=== PATIENT | male | born 1965 | race Caucasian/White ===

== ENCOUNTER 2016-06-22 23:53 | Inpatient (IN) | payer MEDICARE ==
[~2016-06-22] VITALS: Ht 177.8 cm; Wt 61.2 kg
[~2016-06-22 23:53] MED LIST: ASPI81CH43 PO; ATOR40TA52 PO; CETI1CAP OR; DIV250ER PO; DIVA500T59 PO; ELVI1TAB4 PO; ELVITAB2 OR; FAM20T PO; FERR325T PO; FOLI1TAB6 PO; FURO40TA4 PO; KEP500T PO; MAGN400T23 PO; MELA5TAB8 PO; METO25TA5 PO; OLAN2.5T32 PO; ONDA4TAB5 PO; PHE100C PO; POTA80TA OR; SPIR100T21 PO; TAMS0.4C36 PO; THIA50CA PO; [UNRECOGNIZED DRUG - CODE] PO
[2016-06-23 01:16] LABS: Basophils # (auto) 0 uL; Basophils % (auto) 0.4 % (0.0-2.0); Eosinophils # (auto) 0 uL; Hemoglobin 16.4 g/dL (13.5-17.5); Lymphocytes # (auto) 0.8 uL; Lymphocytes % (auto) 9.3 % (10.0-50.0); Mean Corpuscular Hemoglobin 33.3 pg (28.0-32.0); Mean Corpuscular Hgb Conc. 33.6 g/dL (32.0-36.0); Mean Corpuscular Volume 99.3 fL (80.0-100.0); Mean Platelet Volume 7.3 fL (7.4-10.4); Monocytes # (auto) 0.8 uL; Monocytes % (auto) 8.8 % (0.0-12.0); Neutrophils # (auto) 7.4 uL; Neutrophils % (auto) 81.5 % (37.0-80.0); Platelet Count (auto) 229 10^3/uL (140-450); Red Cell Distribution Width 18.7 % (11.6-16.0)
[2016-06-23 01:25] LABS: Albumin 3.4 g/dL (3.4-5.0); Calcium 8.2 mg/dL (8.5-10.1); Magnesium 2.2 mg/dL (1.6-2.6); Potassium 3.7 mmol/L (3.5-5.1)
[2016-06-23 01:31] LABS: Bilirubin, Total 0.7 mg/dL (0.2-1.0); Total Protein 8.5 g/dL (6.4-8.2)
[2016-06-23 01:42] LABS: INR 1.08 (0.9-1.15); Partial Thromboplastin Time 26.1 sec (22.64-33.71); Prothrombin Time 11.7 sec (9.37-12.3)
[2016-06-23 01:48] LABS: Temperature: 21.6 C (20.0-25.0)
[2016-06-23] MEDS ORDERED: IOHEXOL 350 MG/ML 100ML IJ ONE (04:24)
[2016-06-23] MEDS ORDERED: LEVOFLOXACIN 500MG 100 ML IV ONE (06:00)
[2016-06-23] MEDS ORDERED: SULFAMETH-TRIMETH 80/16MG-ML 15 ML in D5W 5% 500 ML IV ONE (06:00)
[2016-06-23] MEDS ORDERED: LORazepam 2MG/ML-1ML VIAL ONE (06:01)
[2016-06-23] MEDS ORDERED: LORazepam 2MG/ML-1ML VIAL IV ONE (06:15)
[2016-06-23] MEDS ORDERED: SODIUM CHLORIDE 0.9% 1,000 ML IV ONE ×3 (06:15→14:30)
[2016-06-23] MEDS ORDERED: LEVETIRACETAM INJ 1,000 MG in SODIUM CHL 0.9% 100 ML IV ONE (06:15)
[2016-06-23] MEDS ORDERED: chlordiazePOXIDE HCL 5 MG CAP PO ONE (09:00)
[2016-06-23] MEDS ORDERED: VANCOMYCIN PER PHARMACY 0 MG IV SCH (09:15)
[2016-06-23] MEDS ORDERED: VANCOMYCIN 1GM/250ML D5W 250 ML IV ONE (09:15)
[2016-06-23] MEDS ORDERED: THIAMINE HCL 100 MG/ML 2ML VIAL IV ONE (09:30)
[2016-06-23] MEDS ORDERED: chlordiazePOXIDE HCL 25 MG CAP PO ONE (09:30)
[2016-06-23] MEDS ORDERED: ACETAMINOPHEN 500 MG TAB PO PRN (09:30)
[2016-06-23] MEDS ORDERED: HYDROmorphone HCL 2 MG/ML VL IV PRN (09:30)
[2016-06-23] MEDS ORDERED: NITROGLYCERIN 0.4 MG SL TAB SL PRN (09:30)
[2016-06-23] MEDS ORDERED: PROCHLORPERAZINE EDISYLATE 5 MG/ML 2ML VIAL IV PRN (09:30)
[2016-06-23] MEDS ORDERED: BACTRIM 5MG/KG Q8HR PER RX 0 ML IV SCH (09:30)
[2016-06-23] MEDS ORDERED: LACTULOSE 20Gm/30ML SOLN PO PRN (09:30)
[2016-06-23] MEDS ORDERED: HYDROcodone-ACET 5/325MG TAB PO PRN (09:30)
[2016-06-23] MEDS ORDERED: ALBUTEROL SULF 2.5 MG/0.5ML(0.5%) NEB SOLN NEB PRN (09:30)
[2016-06-23] MEDS: THIAMINE HCL 100 MG/ML 2ML VIAL IV SCH (09:56)
[2016-06-23] MEDS ORDERED: LEVETIRACETAM 500 MG TAB PO SCH ×2 (10:00)
[2016-06-23] MEDS ORDERED: PATIENTS OWN MEDICATION (Folic Acid 1 MG) PO SCH ×2 (10:00)
[2016-06-23] MEDS ORDERED: PATIENTS OWN MEDICATION (Rifaximin 550 MG) PO SCH (10:00)
[2016-06-23] MEDS ORDERED: PATIENTS OWN MEDICATION PO SCH ×2 (10:00)
[2016-06-23] MEDS ORDERED: OLANZAPINE 2.5 MG PO SCH (10:00)
[2016-06-23] MEDS ORDERED: DIVALPROEX SODIUM 250 MG PO SCH (10:00)
[2016-06-23] MEDS ORDERED: PATIENTS OWN MEDICATION (Divalproex Sodium 500 MG) PO SCH (10:00)
[2016-06-23] MEDS ORDERED: FERROUS SULFATE 325 MG TAB PO SCH (10:00)
[2016-06-23] MEDS: SODIUM CHLORIDE 0.9% 1,000 ML IV SCH ×3 (10:53→22:59)
[2016-06-23] MEDS: VANCOMYCIN 1GM/250ML D5W 250 ML IV SCH ×2 (11:00→18:38)
[2016-06-23] MEDS: TAMSULOSIN HYDROCHLORIDE 0.4 MG CAP PO SCH (11:00)
[2016-06-23] MEDS: MAGNESIUM OXIDE 400 MG TAB PO SCH (11:00)
[2016-06-23] MEDS: PANTOPRAZOLE SODIUM 40 MG/10 ML VIAL IV SCH (11:00)
[2016-06-23] MEDS: FOLIC ACID 1 MG TAB PO SCH (11:00)
[2016-06-23] MEDS: OLANZapine 5 MG TAB PO SCH ×2 (11:00→21:53)
[2016-06-23] MEDS: METOPROLOL TARTRATE 25 MG TAB PO SCH ×2 (11:03→21:53)
[2016-06-23] MEDS: AZITHROMYCIN 500MG/D5W 250ML 250 ML IV SCH (11:30)
[2016-06-23] MEDS ORDERED: chlordiazePOXIDE HCL 5 MG CAP PO SCH (12:00)
[2016-06-23] MEDS: RIFAXIMIN 550 MG TAB PO SCH ×2 (13:00→21:53)
[2016-06-23] MEDS: EMTRICITABINE PO SCH (13:00)
[2016-06-23] MEDS: TENOFOVIR DISOPROXIL FUMARATE PO SCH (13:00)
[2016-06-23] MEDS: COBICISTAT PO SCH (13:00)
[2016-06-23] MEDS: ELVITEGRAVIR PO SCH (13:00)
[2016-06-23 15:04] LABS: Hematocrit 40.2 % (41.0-53.0); Hemoglobin 13.5 g/dL (13.5-17.5)
[2016-06-23] MEDS: MEROPENEM 1GM IVPB 100 ML IV SCH ×2 (15:10→21:54)
[2016-06-23] MEDS: chlordiazePOXIDE HCL 5 MG CAP PO SCH ×2 (15:20→20:48)
[2016-06-23] MEDS: SULFAMETH-TRIMETH 80/16MG-ML 15 ML in D5W 5% 500 ML IV SCH (17:38)
[2016-06-23] MEDS: ALBUTEROL SULF 2.5 MG/0.5ML(0.5%) NEB SOLN NEB SCH ×3 (18:00→21:20)
[2016-06-23] MEDS ORDERED: FERROUS SULFATE 65 MG PO SCH (18:00)
[2016-06-23] MEDS ORDERED: PATIENTS OWN MEDICATION (Atorvastatin Calcium 1 TAB) PO SCH ×2 (18:00)
[2016-06-23] MEDS: FERROUS SULFATE 325 MG TAB PO SCH (18:39)
[2016-06-23 20:47] LABS: Hematocrit 40.6 % (41.0-53.0); Hemoglobin 13.6 g/dL (13.5-17.5)
[2016-06-23] MEDS: ATORVASTATIN 20 MG TAB PO SCH (21:53)
[2016-06-23] MEDS: PHENYTOIN SODIUM 100 MG CAP PO SCH (21:53)
[2016-06-23] MEDS: LEVETIRACETAM 500 MG TAB PO SCH (21:53)
[2016-06-24] VITALS (7 sets, daily range): BP systolic 90–114; BP diastolic 58–76
[2016-06-24] MEDS: SULFAMETH-TRIMETH 80/16MG-ML 15 ML in D5W 5% 500 ML IV SCH ×3 (00:14→16:00)
[2016-06-24] MEDS: SODIUM CHLORIDE 0.9% 1,000 ML IV SCH (00:44)
[2016-06-24] MEDS: ALBUTEROL SULF 2.5 MG/0.5ML(0.5%) NEB SOLN NEB SCH ×4 (00:46→18:44)
[2016-06-24] MEDS: VANCOMYCIN 1GM/250ML D5W 250 ML IV SCH ×2 (01:52→11:08)
[2016-06-24] MEDS: chlordiazePOXIDE HCL 5 MG CAP PO SCH ×4 (03:07→20:53)
[2016-06-24 05:43] LABS: Basophils # (auto) 0 uL; Basophils % (auto) 0.5 % (0.0-2.0); Eosinophils # (auto) 0 uL; Eosinophils % (auto) 0.2 % (0.0-7.0); Hematocrit 36.7 % (41.0-53.0); Hemoglobin 12.5 g/dL (13.5-17.5); Lymphocytes # (auto) 1.6 uL; Lymphocytes % (auto) 21.1 % (10.0-50.0); Mean Corpuscular Hemoglobin 33.7 pg (28.0-32.0); Mean Corpuscular Volume 99.3 fL (80.0-100.0); Mean Platelet Volume 7.3 fL (7.4-10.4); Monocytes # (auto) 0.8 uL; Monocytes % (auto) 10.3 % (0.0-12.0); Neutrophils # (auto) 5.2 uL; Neutrophils % (auto) 67.9 % (37.0-80.0); Platelet Count (auto) 114 10^3/uL (140-450); Red Cell Distribution Width 18.1 % (11.6-16.0); White Blood Cell 7.7 10^3/uL (4.4-10.8)
[2016-06-24 05:55] LABS: Albumin 2.5 g/dL (3.4-5.0); BUN/Creatinine Ratio 4.6; Bilirubin, Total 0.7 mg/dL (0.2-1.0); Calcium 7.7 mg/dL (8.5-10.1); Total Protein 6.4 g/dL (6.4-8.2)
[2016-06-24] MEDS: MEROPENEM 1GM IVPB 100 ML IV SCH ×3 (06:45→22:34)
[2016-06-24 06:48] LABS: Potassium 2.8 mmol/L (3.5-5.1)
[2016-06-24] MEDS ORDERED: POTASSIUM CHL 20 Meq TABLET PO ONE ×2 (08:45→10:45)
[2016-06-24] MEDS: FERROUS SULFATE 325 MG TAB PO SCH ×2 (08:49→18:02)
[2016-06-24] MEDS: EMTRICITABINE PO SCH (10:00)
[2016-06-24] MEDS: COBICISTAT PO SCH (10:00)
[2016-06-24] MEDS: TENOFOVIR DISOPROXIL FUMARATE PO SCH (10:00)
[2016-06-24] MEDS: ELVITEGRAVIR PO SCH (10:00)
[2016-06-24] MEDS: RIFAXIMIN 550 MG TAB PO SCH ×2 (10:00→22:34)
[2016-06-24] MEDS: THIAMINE HCL 100 MG/ML 2ML VIAL IV SCH (11:07)
[2016-06-24] MEDS: PANTOPRAZOLE SODIUM 40 MG/10 ML VIAL IV SCH (11:08)
[2016-06-24] MEDS: FOLIC ACID 1 MG TAB PO SCH (11:08)
[2016-06-24] MEDS: METOPROLOL TARTRATE 25 MG TAB PO SCH ×2 (11:09→12:39)
[2016-06-24] MEDS: TAMSULOSIN HYDROCHLORIDE 0.4 MG CAP PO SCH (11:10)
[2016-06-24] MEDS: OLANZapine 5 MG TAB PO SCH ×2 (11:10→22:31)
[2016-06-24] MEDS: MAGNESIUM OXIDE 400 MG TAB PO SCH (11:10)
[2016-06-24] MEDS: LEVETIRACETAM 500 MG TAB PO SCH ×2 (11:10→22:30)
[2016-06-24] MEDS: AZITHROMYCIN 500MG/D5W 250ML 250 ML IV SCH (11:13)
[2016-06-24] MEDS: SOD CHL 0.9%/ KCL 40MEQ 1,000 ML IV SCH ×2 (12:54→20:02)
[2016-06-24 16:53] LABS: Hematocrit 37.2 % (41.0-53.0); Hemoglobin 12.5 g/dL (13.5-17.5)
[2016-06-24 19:34] LABS: Urine Bilirubin Negative (Negative); Urine Blood TRACE /uL (Negative); Urine Color Yellow (Yellow); Urine Glucose Normal (Normal); Urine Ketone Negative (Negative); Urine Nitrite Negative (Negative); Urine RBC 11 /hpf (0 - 3); Urine Urobilinogen Normal (Negative)
[2016-06-24] MEDS: ATORVASTATIN 20 MG TAB PO SCH (22:30)
[2016-06-24] MEDS: PHENYTOIN SODIUM 100 MG CAP PO SCH (22:31)
[2016-06-25] MEDS: SULFAMETH-TRIMETH 80/16MG-ML 15 ML in D5W 5% 500 ML IV SCH ×2 (00:51→18:30)
[2016-06-25 01:34] LABS: Hematocrit 38.7 % (41.0-53.0); Hemoglobin 13.1 g/dL (13.5-17.5)
[2016-06-25 05:00] VITALS: BP 116/64
[2016-06-25] MEDS: chlordiazePOXIDE HCL 5 MG CAP PO SCH ×4 (05:12→20:54)
[2016-06-25] MEDS: ALBUTEROL SULF 2.5 MG/0.5ML(0.5%) NEB SOLN NEB SCH ×4 (06:00→18:26)
[2016-06-25] MEDS: MEROPENEM 1GM IVPB 100 ML IV SCH ×3 (06:23→22:37)
[2016-06-25] MEDS: SOD CHL 0.9%/ KCL 40MEQ 1,000 ML IV SCH ×2 (06:23→16:45)
[2016-06-25 07:29] LABS: Albumin 2.6 g/dL (3.4-5.0); BUN/Creatinine Ratio 3.8; Calcium 7.9 mg/dL (8.5-10.1)
[2016-06-25 07:31] LABS: Bilirubin, Total 0.7 mg/dL (0.2-1.0); Total Protein 6.6 g/dL (6.4-8.2)
[2016-06-25 07:43] VITALS: BP 128/88
[2016-06-25 07:46] LABS: Basophils # (auto) 0 uL; Basophils % (auto) 0.4 % (0.0-2.0); Eosinophils # (auto) 0 uL; Eosinophils % (auto) 0.4 % (0.0-7.0); Hematocrit 39.1 % (41.0-53.0); Hemoglobin 13.2 g/dL (13.5-17.5); Lymphocytes # (auto) 1.5 uL; Lymphocytes % (auto) 18.4 % (10.0-50.0); Mean Corpuscular Hgb Conc. 33.8 g/dL (32.0-36.0); Mean Corpuscular Volume 100.4 fL (80.0-100.0); Mean Platelet Volume 7.9 fL (7.4-10.4); Neutrophils # (auto) 5.5 uL; Neutrophils % (auto) 68.8 % (37.0-80.0); Platelet Count (auto) 119 10^3/uL (140-450); Red Cell Distribution Width 17.9 % (11.6-16.0); White Blood Cell 7.9 10^3/uL (4.4-10.8)
[2016-06-25] MEDS: LORazepam 2MG/ML-1ML VIAL IV PRN ×3 (08:39→22:58)
[2016-06-25] MEDS: PANTOPRAZOLE SODIUM 40 MG/10 ML VIAL IV SCH (09:03)
[2016-06-25] MEDS: THIAMINE HCL 100 MG/ML 2ML VIAL IV SCH (09:07)
[2016-06-25] MEDS: VANCOMYCIN 1GM/250ML D5W 250 ML IV SCH ×2 (09:09→20:53)
[2016-06-25] MEDS: FERROUS SULFATE 325 MG TAB PO SCH ×2 (09:09→18:00)
[2016-06-25] MEDS: TENOFOVIR DISOPROXIL FUMARATE PO SCH (09:14)
[2016-06-25] MEDS: EMTRICITABINE PO SCH (09:14)
[2016-06-25] MEDS: COBICISTAT PO SCH (09:14)
[2016-06-25] MEDS: ELVITEGRAVIR PO SCH (09:14)
[2016-06-25] MEDS: LEVETIRACETAM 500 MG TAB PO SCH ×2 (09:15→22:40)
[2016-06-25] MEDS: OLANZapine 5 MG TAB PO SCH ×2 (09:16→22:41)
[2016-06-25] MEDS: METOPROLOL TARTRATE 25 MG TAB PO SCH ×2 (09:28→22:42)
[2016-06-25] MEDS: TAMSULOSIN HYDROCHLORIDE 0.4 MG CAP PO SCH (09:32)
[2016-06-25] MEDS: MAGNESIUM OXIDE 400 MG TAB PO SCH (09:32)
[2016-06-25] MEDS: FOLIC ACID 1 MG TAB PO SCH (09:32)
[2016-06-25] MEDS: RIFAXIMIN 550 MG TAB PO SCH ×2 (10:00→22:46)
[2016-06-25 12:46] VITALS: BP 94/66
[2016-06-25] MEDS: AZITHROMYCIN 500MG/D5W 250ML 250 ML IV SCH (13:02)
[2016-06-25] MEDS: ENOXAPARIN SOD 40 MG/0.4 ML SYRINGE SC SCH (15:45)
[2016-06-25 16:23] VITALS: BP 87/61
[2016-06-25 22:00] VITALS: BP 100/71
[2016-06-25] MEDS: ATORVASTATIN 20 MG TAB PO SCH (22:39)
[2016-06-25] MEDS: PHENYTOIN SODIUM 100 MG CAP PO SCH (22:39)
[2016-06-26] MEDS: SULFAMETH-TRIMETH 80/16MG-ML 15 ML in D5W 5% 500 ML IV SCH ×3 (00:36→17:49)
[2016-06-26] MEDS: ALBUTEROL SULF 2.5 MG/0.5ML(0.5%) NEB SOLN NEB SCH ×4 (00:52→19:11)
[2016-06-26] MEDS: SOD CHL 0.9%/ KCL 40MEQ 1,000 ML IV SCH ×2 (02:45→13:56)
[2016-06-26] MEDS: chlordiazePOXIDE HCL 5 MG CAP PO SCH ×4 (03:29→21:06)
[2016-06-26 05:00] VITALS: BP 83/52
[2016-06-26] MEDS: MEROPENEM 1GM IVPB 100 ML IV SCH ×2 (05:50→13:56)
[2016-06-26 06:21] LABS: Basophils # (auto) 0 uL; Basophils % (auto) 0.4 % (0.0-2.0); Eosinophils # (auto) 0.2 uL; Eosinophils % (auto) 3.2 % (0.0-7.0); Hematocrit 37.3 % (41.0-53.0); Hemoglobin 12.7 g/dL (13.5-17.5); Lymphocytes # (auto) 1.3 uL; Lymphocytes % (auto) 20.1 % (10.0-50.0); Mean Platelet Volume 8.2 fL (7.4-10.4); Monocytes # (auto) 0.6 uL; Monocytes % (auto) 9.2 % (0.0-12.0); Neutrophils # (auto) 4.4 uL; Neutrophils % (auto) 67.1 % (37.0-80.0); Platelet Count (auto) 116 10^3/uL (140-450); Red Cell Distribution Width 18.5 % (11.6-16.0); White Blood Cell 6.6 10^3/uL (4.4-10.8)
[2016-06-26 06:46] LABS: Albumin 2.3 g/dL (3.4-5.0); BUN/Creatinine Ratio 7.7; Bilirubin, Total 0.4 mg/dL (0.2-1.0); Calcium 7.6 mg/dL (8.5-10.1); Potassium 3.8 mmol/L (3.5-5.1)
[2016-06-26 07:30] VITALS: BP 82/54
[2016-06-26 08:35] VITALS: BP 78/52
[2016-06-26] MEDS: METOPROLOL TARTRATE 25 MG TAB PO SCH ×2 (10:00→22:00)
[2016-06-26] MEDS: LEVETIRACETAM 500 MG TAB PO SCH ×2 (10:15→22:32)
[2016-06-26] MEDS: TAMSULOSIN HYDROCHLORIDE 0.4 MG CAP PO SCH (10:15)
[2016-06-26] MEDS: PANTOPRAZOLE SODIUM 40 MG/10 ML VIAL IV SCH (10:15)
[2016-06-26] MEDS: MAGNESIUM OXIDE 400 MG TAB PO SCH (10:15)
[2016-06-26] MEDS: OLANZapine 5 MG TAB PO SCH ×2 (10:16→22:33)
[2016-06-26] MEDS: FOLIC ACID 1 MG TAB PO SCH (10:16)
[2016-06-26] MEDS: FERROUS SULFATE 325 MG TAB PO SCH ×2 (10:17→17:50)
[2016-06-26] MEDS: THIAMINE HCL 100 MG/ML 2ML VIAL IV SCH (10:17)
[2016-06-26] MEDS: ENOXAPARIN SOD 40 MG/0.4 ML SYRINGE SC SCH (10:17)
[2016-06-26] MEDS: VANCOMYCIN 1GM/250ML D5W 250 ML IV SCH ×2 (10:36→21:06)
[2016-06-26] MEDS: RIFAXIMIN 550 MG TAB PO SCH ×2 (10:55→22:33)
[2016-06-26] MEDS: EMTRICITABINE PO SCH (10:56)
[2016-06-26] MEDS: ELVITEGRAVIR PO SCH (10:56)
[2016-06-26] MEDS: TENOFOVIR DISOPROXIL FUMARATE PO SCH (10:56)
[2016-06-26] MEDS: COBICISTAT PO SCH (10:56)
[2016-06-26 12:48] VITALS: BP 70/56
[2016-06-26] MEDS: AZITHROMYCIN 500MG/D5W 250ML 250 ML IV SCH (13:55)
[2016-06-26 16:43] VITALS: BP 71/52
[2016-06-26 22:00] VITALS: BP 92/66
[2016-06-26] MEDS: PHENYTOIN SODIUM 100 MG CAP PO SCH (22:32)
[2016-06-26] MEDS: ATORVASTATIN 20 MG TAB PO SCH (22:32)
[2016-06-27] VITALS (7 sets, daily range): BP systolic 71–91; BP diastolic 52–65
[2016-06-27] MEDS: ALBUTEROL SULF 2.5 MG/0.5ML(0.5%) NEB SOLN NEB SCH ×3 (00:13→19:04)
[2016-06-27] MEDS: SOD CHL 0.9%/ KCL 40MEQ 1,000 ML IV SCH ×4 (00:15→23:24)
[2016-06-27] MEDS: MEROPENEM 1GM IVPB 100 ML IV SCH ×4 (00:15→22:00)
[2016-06-27 03:06] LABS: Hematocrit 38.4 % (37.5-51.0); Hemoglobin 12.7 g/dL (12.6-17.7); Immature Granulocytes 0 % (.); MCH 33.8 pg (26.6-33.0); MCHC 33.1 g/dL (31.5-35.7); MCV 102 fL (79-97); Monocytes 11 % (.); Neutrophils 62 % (.); Neutrophils (Absolute) 4.6 x10E3/uL (1.4-7.0); Platelets 102 x10E3/uL (150-379); RBC 3.76 x10E6/uL (4.14-5.80); RDW 17.6 % (12.3-15.4); WBC 7.6 x10E3/uL (3.4-10.8)
[2016-06-27] MEDS: chlordiazePOXIDE HCL 5 MG CAP PO SCH ×4 (03:11→21:47)
[2016-06-27] MEDS: SULFAMETH-TRIMETH 80/16MG-ML 15 ML in D5W 5% 500 ML IV SCH ×4 (03:11→23:23)
[2016-06-27] MEDS: THIAMINE HCL 100 MG/ML 2ML VIAL IV SCH (09:14)
[2016-06-27] MEDS: PANTOPRAZOLE SODIUM 40 MG/10 ML VIAL IV SCH (09:14)
[2016-06-27] MEDS: VANCOMYCIN 1GM/250ML D5W 250 ML IV SCH ×2 (09:14→21:43)
[2016-06-27] MEDS: ENOXAPARIN SOD 40 MG/0.4 ML SYRINGE SC SCH (09:17)
[2016-06-27] MEDS: MAGNESIUM OXIDE 400 MG TAB PO SCH (09:19)
[2016-06-27] MEDS: LEVETIRACETAM 500 MG TAB PO SCH ×2 (09:20→21:47)
[2016-06-27] MEDS: FERROUS SULFATE 325 MG TAB PO SCH ×2 (09:20→17:15)
[2016-06-27] MEDS: OLANZapine 5 MG TAB PO SCH ×2 (09:20→21:34)
[2016-06-27] MEDS: TAMSULOSIN HYDROCHLORIDE 0.4 MG CAP PO SCH (09:20)
[2016-06-27] MEDS: FOLIC ACID 1 MG TAB PO SCH (09:20)
[2016-06-27] MEDS: METOPROLOL TARTRATE 25 MG TAB PO SCH ×2 (09:41→21:51)
[2016-06-27] MEDS: RIFAXIMIN 550 MG TAB PO SCH ×2 (10:00→21:43)
[2016-06-27] MEDS: EMTRICITABINE PO SCH (10:00)
[2016-06-27] MEDS: COBICISTAT PO SCH (10:00)
[2016-06-27] MEDS: TENOFOVIR DISOPROXIL FUMARATE PO SCH (10:00)
[2016-06-27] MEDS: ELVITEGRAVIR PO SCH (10:00)
[2016-06-27 11:07] LABS: Absolute CD 4 Helper 648 /uL (359-1519)
[2016-06-27] MEDS: AZITHROMYCIN 500MG/D5W 250ML 250 ML IV SCH (11:10)
[2016-06-27] MEDS: PHENYTOIN SODIUM 100 MG CAP PO SCH (21:47)
[2016-06-27] MEDS: ATORVASTATIN 20 MG TAB PO SCH (21:47)
[2016-06-28] MEDS: ALBUTEROL SULF 2.5 MG/0.5ML(0.5%) NEB SOLN NEB SCH ×4 (00:54→19:40)
[2016-06-28] MEDS: chlordiazePOXIDE HCL 5 MG CAP PO SCH ×4 (03:58→21:47)
[2016-06-28 05:12] VITALS: BP 75/53
[2016-06-28] MEDS ORDERED: SODIUM CHLORIDE 0.9 % NEB SOLN 3ML NEB ONE ×2 (05:36→11:29)
[2016-06-28] MEDS ORDERED: ALBUTEROL SULF 2.5 MG/0.5ML(0.5%) NEB SOLN ONE (05:36)
[2016-06-28] MEDS: MEROPENEM 1GM IVPB 100 ML IV SCH ×3 (05:46→23:12)
[2016-06-28] MEDS: SULFAMETH-TRIMETH 80/16MG-ML 15 ML in D5W 5% 500 ML IV SCH ×2 (08:00→16:13)
[2016-06-28] MEDS: FERROUS SULFATE 325 MG TAB PO SCH ×2 (08:00→18:00)
[2016-06-28 09:00] VITALS: BP 74/47
[2016-06-28] MEDS: VANCOMYCIN 1GM/250ML D5W 250 ML IV SCH ×2 (09:00→21:47)
[2016-06-28] MEDS: COBICISTAT PO SCH (10:00)
[2016-06-28] MEDS: ELVITEGRAVIR PO SCH (10:00)
[2016-06-28] MEDS: EMTRICITABINE PO SCH (10:00)
[2016-06-28] MEDS: RIFAXIMIN 550 MG TAB PO SCH ×2 (10:00→21:48)
[2016-06-28] MEDS: TENOFOVIR DISOPROXIL FUMARATE PO SCH (10:00)
[2016-06-28] MEDS: PANTOPRAZOLE SODIUM 40 MG/10 ML VIAL IV SCH (10:48)
[2016-06-28] MEDS: THIAMINE HCL 100 MG/ML 2ML VIAL IV SCH (10:49)
[2016-06-28] MEDS: FOLIC ACID 1 MG TAB PO SCH (10:50)
[2016-06-28] MEDS: MAGNESIUM OXIDE 400 MG TAB PO SCH (10:51)
[2016-06-28] MEDS: TAMSULOSIN HYDROCHLORIDE 0.4 MG CAP PO SCH (10:51)
[2016-06-28] MEDS: OLANZapine 5 MG TAB PO SCH ×2 (10:51→21:49)
[2016-06-28] MEDS: METOPROLOL TARTRATE 25 MG TAB PO SCH ×2 (10:52→22:00)
[2016-06-28] MEDS: LEVETIRACETAM 500 MG TAB PO SCH ×2 (10:52→21:48)
[2016-06-28] MEDS: ENOXAPARIN SOD 40 MG/0.4 ML SYRINGE SC SCH (10:52)
[2016-06-28] MEDS: AZITHROMYCIN 500MG/D5W 250ML 250 ML IV SCH (12:00)
[2016-06-28 13:00] VITALS: BP 88/64
[2016-06-28] MEDS: SOD CHL 0.9%/ KCL 40MEQ 1,000 ML IV SCH (14:45)
[2016-06-28 17:17] VITALS: BP 89/56
[2016-06-28] MEDS: BOOST PLUS 8 ounce PO SCH (18:00)
[2016-06-28] MEDS: PRO-STAT 64 30ML PO SCH (18:00)
[2016-06-28 20:42] VITALS: BP 93/60
[2016-06-28] MEDS: ATORVASTATIN 20 MG TAB PO SCH (21:48)
[2016-06-28] MEDS: PHENYTOIN SODIUM 100 MG CAP PO SCH (21:48)
[2016-06-29] MEDS: SULFAMETH-TRIMETH 80/16MG-ML 15 ML in D5W 5% 500 ML IV SCH ×2 (00:45→08:20)
[2016-06-29] MEDS: SOD CHL 0.9%/ KCL 40MEQ 1,000 ML IV SCH (01:12)
[2016-06-29] MEDS: chlordiazePOXIDE HCL 5 MG CAP PO SCH ×4 (03:12→21:53)
[2016-06-29] MEDS: MEROPENEM 1GM IVPB 100 ML IV SCH (05:37)
[2016-06-29 06:12] VITALS: BP 89/67
[2016-06-29] MEDS: ALBUTEROL SULF 2.5 MG/0.5ML(0.5%) NEB SOLN NEB SCH ×3 (07:15→19:07)
[2016-06-29] MEDS: BOOST PLUS 8 ounce PO SCH ×2 (08:00→16:09)
[2016-06-29] MEDS: PRO-STAT 64 30ML PO SCH ×2 (08:00→19:30)
[2016-06-29] MEDS: FERROUS SULFATE 325 MG TAB PO SCH ×2 (08:00→17:33)
[2016-06-29 09:00] VITALS: BP 97/64
[2016-06-29] MEDS: EMTRICITABINE PO SCH (10:00)
[2016-06-29] MEDS: METOPROLOL TARTRATE 25 MG TAB PO SCH ×2 (10:00→21:54)
[2016-06-29] MEDS: COBICISTAT PO SCH (10:00)
[2016-06-29] MEDS: TENOFOVIR DISOPROXIL FUMARATE PO SCH (10:00)
[2016-06-29] MEDS: RIFAXIMIN 550 MG TAB PO SCH ×2 (10:00→21:53)
[2016-06-29] MEDS: ELVITEGRAVIR PO SCH (10:00)
[2016-06-29 13:00] VITALS: BP 94/64
[2016-06-29] MEDS: TAMSULOSIN HYDROCHLORIDE 0.4 MG CAP PO SCH (15:53)
[2016-06-29] MEDS: THIAMINE HCL 100 MG/ML 2ML VIAL IV SCH (15:53)
[2016-06-29] MEDS: MAGNESIUM OXIDE 400 MG TAB PO SCH (15:53)
[2016-06-29] MEDS: LEVETIRACETAM 500 MG TAB PO SCH ×2 (15:55→21:53)
[2016-06-29] MEDS: FOLIC ACID 1 MG TAB PO SCH (15:56)
[2016-06-29] MEDS: OLANZapine 5 MG TAB PO SCH ×2 (16:06→21:54)
[2016-06-29] MEDS: ENOXAPARIN SOD 40 MG/0.4 ML SYRINGE SC SCH (16:07)
[2016-06-29 18:02] VITALS: BP 94/61
[2016-06-29] MEDS: ATORVASTATIN 20 MG TAB PO SCH (21:53)
[2016-06-29] MEDS: PHENYTOIN SODIUM 100 MG CAP PO SCH (21:54)
[2016-06-29 22:00] VITALS: BP 102/60
[2016-06-30] MEDS: chlordiazePOXIDE HCL 5 MG CAP PO SCH ×4 (03:00→21:14)
[2016-06-30 03:03] VITALS: BP 112/70
[2016-06-30 05:00] VITALS: BP 92/60
[2016-06-30] MEDS: ALBUTEROL SULF 2.5 MG/0.5ML(0.5%) NEB SOLN NEB SCH ×5 (07:20→23:23)
[2016-06-30] MEDS: BOOST PLUS 8 ounce PO SCH ×2 (08:00→18:00)
[2016-06-30] MEDS: PRO-STAT 64 30ML PO SCH ×2 (08:00→18:00)
[2016-06-30] MEDS: ENOXAPARIN SOD 40 MG/0.4 ML SYRINGE SC SCH (09:46)
[2016-06-30] MEDS: TAMSULOSIN HYDROCHLORIDE 0.4 MG CAP PO SCH (09:47)
[2016-06-30] MEDS: LEVETIRACETAM 500 MG TAB PO SCH ×2 (09:47→21:15)
[2016-06-30] MEDS: MAGNESIUM OXIDE 400 MG TAB PO SCH (09:47)
[2016-06-30] MEDS: THIAMINE HCL 100 MG/ML 2ML VIAL IV SCH (09:47)
[2016-06-30] MEDS: RIFAXIMIN 550 MG TAB PO SCH ×2 (09:47→21:15)
[2016-06-30] MEDS: OLANZapine 5 MG TAB PO SCH ×2 (09:47→21:15)
[2016-06-30] MEDS: FOLIC ACID 1 MG TAB PO SCH (09:47)
[2016-06-30] MEDS: METOPROLOL TARTRATE 25 MG TAB PO SCH ×2 (09:52→21:17)
[2016-06-30] MEDS: COBICISTAT PO SCH (09:57)
[2016-06-30] MEDS: ELVITEGRAVIR PO SCH (09:57)
[2016-06-30] MEDS: EMTRICITABINE PO SCH (09:57)
[2016-06-30] MEDS: TENOFOVIR DISOPROXIL FUMARATE PO SCH (09:57)
[2016-06-30] MEDS: FERROUS SULFATE 325 MG TAB PO SCH ×2 (10:03→17:54)
[2016-06-30 10:34] VITALS: BP 101/75
[2016-06-30] MEDS: LORazepam 2MG/ML-1ML VIAL IV PRN (11:52)
[2016-06-30 12:48] VITALS: BP 100/65
[2016-06-30] MEDS: PHENYTOIN SODIUM 100 MG CAP PO SCH (21:16)
[2016-06-30] MEDS: ATORVASTATIN 20 MG TAB PO SCH (21:16)
[2016-06-30 21:31] VITALS: BP 100/58
[2016-07-01] MEDS: chlordiazePOXIDE HCL 5 MG CAP PO SCH ×2 (03:06→09:37)
[2016-07-01 04:34] VITALS: BP 99/52
[2016-07-01] MEDS: ALBUTEROL SULF 2.5 MG/0.5ML(0.5%) NEB SOLN NEB SCH ×2 (06:43→11:30)
[2016-07-01] MEDS: BOOST PLUS 8 ounce PO SCH ×2 (08:00→18:00)
[2016-07-01] MEDS: PRO-STAT 64 30ML PO SCH ×2 (08:00→18:00)
[2016-07-01] MEDS: THIAMINE HCL 100 MG/ML 2ML VIAL IV SCH (09:36)
[2016-07-01] MEDS: ENOXAPARIN SOD 40 MG/0.4 ML SYRINGE SC SCH (09:36)
[2016-07-01] MEDS: OLANZapine 5 MG TAB PO SCH ×2 (09:37→21:53)
[2016-07-01] MEDS: FOLIC ACID 1 MG TAB PO SCH (09:38)
[2016-07-01] MEDS: FERROUS SULFATE 325 MG TAB PO SCH ×2 (09:38→18:04)
[2016-07-01] MEDS: LEVETIRACETAM 500 MG TAB PO SCH ×2 (09:38→21:53)
[2016-07-01] MEDS: MAGNESIUM OXIDE 400 MG TAB PO SCH (09:38)
[2016-07-01] MEDS: TAMSULOSIN HYDROCHLORIDE 0.4 MG CAP PO SCH (09:40)
[2016-07-01] MEDS: TENOFOVIR DISOPROXIL FUMARATE PO SCH (09:40)
[2016-07-01] MEDS: COBICISTAT PO SCH (09:40)
[2016-07-01] MEDS: ELVITEGRAVIR PO SCH (09:40)
[2016-07-01] MEDS: EMTRICITABINE PO SCH (09:40)
[2016-07-01] MEDS: RIFAXIMIN 550 MG TAB PO SCH ×2 (09:41→21:53)
[2016-07-01] MEDS: METOPROLOL TARTRATE 25 MG TAB PO SCH ×2 (10:00→21:54)
[2016-07-01 13:00] VITALS: BP 91/68
[2016-07-01] MEDS ORDERED: LORazepam 2MG/ML-1ML VIAL IV PRN ×3 (14:45→15:00)
[2016-07-01] MEDS ORDERED: HYDROmorphone HCL 2 MG/ML VL IV PRN (14:45)
[2016-07-01] MEDS ORDERED: HYDROcodone-ACET 5/325MG TAB PO PRN (14:45)
[2016-07-01] MEDS ORDERED: chlordiazePOXIDE HCL 5 MG CAP PO SCH (15:00)
[2016-07-01] MEDS ORDERED: chlordiazePOXIDE HCL 5 MG CAP PO PRN (15:00)
[2016-07-01 17:00] VITALS: BP 99/72
[2016-07-01 20:58] VITALS: BP 83/56
[2016-07-01] MEDS: ATORVASTATIN 20 MG TAB PO SCH (21:53)
[2016-07-01] MEDS: PHENYTOIN SODIUM 100 MG CAP PO SCH (21:53)
[2016-07-01 23:56] VITALS: BP 90/59
[2016-07-02 04:39] VITALS: BP 93/64
[2016-07-02 07:00] LABS: Basophils # (auto) 0 uL; Basophils % (auto) 0.9 % (0.0-2.0); Eosinophils # (auto) 0.3 uL; Hematocrit 35.9 % (41.0-53.0); Hemoglobin 12.1 g/dL (13.5-17.5); Lymphocytes # (auto) 1.6 uL; Lymphocytes % (auto) 42.6 % (10.0-50.0); Mean Corpuscular Hgb Conc. 33.6 g/dL (32.0-36.0); Mean Platelet Volume 7.6 fL (7.4-10.4); Monocytes # (auto) 0.5 uL; Monocytes % (auto) 12.8 % (0.0-12.0); Neutrophils # (auto) 1.4 uL; Neutrophils % (auto) 35.7 % (37.0-80.0); Platelet Count (auto) 249 10^3/uL (140-450); Red Cell Distribution Width 18.3 % (11.6-16.0); White Blood Cell 3.8 10^3/uL (4.4-10.8)
[2016-07-02 07:28] LABS: BUN/Creatinine Ratio 35.1; Calcium 8.7 mg/dL (8.5-10.1); Magnesium 2.2 mg/dL (1.6-2.6); Potassium 4.3 mmol/L (3.5-5.1)
[2016-07-02] MEDS: MAGNESIUM OXIDE 400 MG TAB PO SCH (08:44)
[2016-07-02] MEDS: TAMSULOSIN HYDROCHLORIDE 0.4 MG CAP PO SCH (08:45)
[2016-07-02] MEDS: FOLIC ACID 1 MG TAB PO SCH (08:45)
[2016-07-02] MEDS: THIAMINE HCL 100 MG TAB PO SCH (08:45)
[2016-07-02] MEDS: FERROUS SULFATE 325 MG TAB PO SCH ×2 (08:46→18:28)
[2016-07-02] MEDS: ENOXAPARIN SOD 40 MG/0.4 ML SYRINGE SC SCH (08:47)
[2016-07-02] MEDS: OLANZapine 5 MG TAB PO SCH ×2 (08:47→21:33)
[2016-07-02] MEDS: COBICISTAT PO SCH (08:48)
[2016-07-02] MEDS: TENOFOVIR DISOPROXIL FUMARATE PO SCH (08:48)
[2016-07-02] MEDS: ELVITEGRAVIR PO SCH (08:48)
[2016-07-02] MEDS: EMTRICITABINE PO SCH (08:48)
[2016-07-02] MEDS: RIFAXIMIN 550 MG TAB PO SCH ×2 (08:49→21:32)
[2016-07-02] MEDS: LEVETIRACETAM 500 MG TAB PO SCH ×2 (08:49→21:32)
[2016-07-02] MEDS: BOOST PLUS 8 ounce PO SCH ×2 (08:50→18:29)
[2016-07-02] MEDS: PRO-STAT 64 30ML PO SCH ×2 (08:50→18:29)
[2016-07-02 09:00] VITALS: BP 93/62
[2016-07-02] MEDS: METOPROLOL TARTRATE 25 MG TAB PO SCH ×2 (10:00→22:00)
[2016-07-02 12:35] VITALS: BP 98/71
[2016-07-02 16:52] VITALS: BP 100/72
[2016-07-02] MEDS: PHENYTOIN SODIUM 100 MG CAP PO SCH (21:32)
[2016-07-02] MEDS: ATORVASTATIN 20 MG TAB PO SCH (21:32)
[2016-07-02 21:48] VITALS: BP 93/62
[2016-07-03 05:10] VITALS: BP 98/59
[2016-07-03] MEDS: BOOST PLUS 8 ounce PO SCH (08:00)
[2016-07-03] MEDS: PRO-STAT 64 30ML PO SCH (08:00)
[2016-07-03] MEDS: ENOXAPARIN SOD 40 MG/0.4 ML SYRINGE SC SCH (09:01)
[2016-07-03] MEDS: FERROUS SULFATE 325 MG TAB PO SCH (09:01)
[2016-07-03] MEDS: MAGNESIUM OXIDE 400 MG TAB PO SCH (09:02)
[2016-07-03] MEDS: FOLIC ACID 1 MG TAB PO SCH (09:02)
[2016-07-03] MEDS: THIAMINE HCL 100 MG TAB PO SCH (09:02)
[2016-07-03] MEDS: OLANZapine 5 MG TAB PO SCH (09:03)
[2016-07-03] MEDS: TAMSULOSIN HYDROCHLORIDE 0.4 MG CAP PO SCH (09:04)
[2016-07-03] MEDS: LEVETIRACETAM 500 MG TAB PO SCH (09:04)
[2016-07-03] MEDS: METOPROLOL TARTRATE 25 MG TAB PO SCH (09:11)
[2016-07-03 09:16] VITALS: BP 92/71
[2016-07-03] MEDS: RIFAXIMIN 550 MG TAB PO SCH (09:31)
[2016-07-03] MEDS: COBICISTAT PO SCH (09:32)
[2016-07-03] MEDS: EMTRICITABINE PO SCH (09:32)
[2016-07-03] MEDS: ELVITEGRAVIR PO SCH (09:32)
[2016-07-03] MEDS: TENOFOVIR DISOPROXIL FUMARATE PO SCH (09:32)
[2016-07-03] MEDS ORDERED: KEP500T PO (10:31)
[2016-07-03 12:47] VITALS: BP 92/71
[2016-07-03 13:08] VITALS: BP 93/69
== END 2016-07-03 14:20 | disposition home health service (06) | DRG 974 ==
LOC: ER 23:53 → TELE 23:54 → EAST 06-23 23:32 → TELE-EAST 06-25 23:19 → TELE-CENTR 06-28 22:46 → CENTRAL 06-29 17:12
PROVIDERS: ADMIT Internal Medicine; ATTEND Internal Medicine Pulmonary Disease
DX: B20 Human immunodeficiency virus [HIV] disease (principal); A41.9 Sepsis, unspecified organism; J69.0 Pneumonitis due to inhalation of food and vomit; R53.2 Functional quadriplegia; E43 Unspecified severe protein-calorie malnutrition; M48.50XA Collapsed vertebra, not elsewhere classified, site unspecified, initial encounter for fracture; E87.1 Hypo-osmolality and hyponatremia; C79.51 Secondary malignant neoplasm of bone; Z68.1 Body mass index [BMI] 19.9 or less, adult; F10.231 Alcohol dependence with withdrawal delirium; I69.354 Hemiplegia and hemiparesis following cerebral infarction affecting left non-dominant side; K92.0 Hematemesis; E78.5 Hyperlipidemia, unspecified; F20.9 Schizophrenia, unspecified; I10 Essential (primary) hypertension; F17.200 Nicotine dependence, unspecified, uncomplicated; F17.210 Nicotine dependence, cigarettes, uncomplicated; Y90.9 Presence of alcohol in blood, level not specified; F31.9 Bipolar disorder, unspecified; G40.909 Epilepsy, unspecified, not intractable, without status epilepticus; G93.89 Other specified disorders of brain; I25.10 Atherosclerotic heart disease of native coronary artery without angina pectoris; I34.1 Nonrheumatic mitral (valve) prolapse; I67.2 Cerebral atherosclerosis; J43.9 Emphysema, unspecified; Z81.8 Family history of other mental and behavioral disorders; I25.2 Old myocardial infarction; Z82.49 Family history of ischemic heart disease and other diseases of the circulatory system; Z95.2 Presence of prosthetic heart valve; Z88.5 Allergy status to narcotic agent; Z88.0 Allergy status to penicillin
CPT/HCPCS: 36415; 36600; 70450; 71010; 71275; 74176; 80048; 80053; 80061; 80202; 80307; 80320; 81001; 82150; 82533; 82805; 83605; 83690; 83735; 83880; 84132; 84484; 85014; 85018; 85025; 85045; 85379; 85610; 85652; 85730; 86141; 86360; 86850; 86900; 86901; 87040; 87081; 87086; 87493; 93005; 94640; 94761; 96365; 96366; 96367; 96375; 97001; 97116; 97530; C9113; J1956; J2185; J3490

== ENCOUNTER 2016-08-09 15:34 | Observation (INO) | payer MEDICARE ==
[~2016-08-09] VITALS: Ht 177.8 cm; Wt 72.6 kg
[~2016-08-09 15:34] MED LIST changes: +DIPH25CA46 PO; +ELVITAB2 PO; -FERR325T PO; +METH10TA97 PO; -[UNRECOGNIZED DRUG - CODE] PO
[2016-08-09] MEDS ORDERED: SODIUM CHLORIDE 0.9% 1,000 ML IV ONE (17:37)
[2016-08-09 17:41] LABS: Anion Gap 9 (5-15); Blood Urea Nitrogen 11 mg/dL (7-18); Calcium 8.6 mg/dL (8.5-10.1); Carbon Dioxide 25 mmol/L (21-32); Chloride 102 mmol/L (98-107); GFR African American 227 mL/min; GFR Non-African American 188 mL/min; Glucose 82 mg/dL (74-106); Potassium 3.4 mmol/L (3.5-5.1); Sodium 136 mmol/L (136-145)
[2016-08-09 17:45] LABS: Basophils # (auto) 0.1 uL; Basophils % (auto) 1.2 % (0.0-2.0); CONDITION Y; Eosinophils # (auto) 0.5 uL; Eosinophils % (auto) 7.8 % (0.0-7.0); Hematocrit 43.6 % (41.0-53.0); Hemoglobin 15.1 g/dL (13.5-17.5); Lymphocytes % (auto) 30.7 % (10.0-50.0); Mean Corpuscular Hemoglobin 34.3 pg (28.0-32.0); Mean Corpuscular Hgb Conc. 34.6 g/dL (32.0-36.0); Mean Corpuscular Volume 99.3 fL (80.0-100.0); Mean Platelet Volume 8.9 fL (7.4-10.4); Monocytes # (auto) 0.7 uL; Monocytes % (auto) 10.2 % (0.0-12.0); Neutrophils # (auto) 3.3 uL; Neutrophils % (auto) 50.1 % (37.0-80.0); Platelet Count (auto) 363 10^3/uL (140-450); Red Cell Distribution Width 14.6 % (11.6-16.0); White Blood Cell 6.5 10^3/uL (4.4-10.8)
[2016-08-09] MEDS ORDERED: NALBUPHINE HCL 10 MG/1ml INJECTION IV ONE (17:45)
[2016-08-09] MEDS ORDERED: PROMETHAZINE HCL 25 MG/ML 1ML IV ONE (17:45)
[2016-08-09 17:46] LABS: Alkaline Phosphatase 253 U/L (45-117); Aspartate Aminotransferase 39 U/L (15-37); Bilirubin, Total 0.2 mg/dL (0.2-1.0); Total Protein 7.5 g/dL (6.4-8.2)
[2016-08-09] MEDS ORDERED: HYDROcodone-ACET 5/325MG TAB PO PRN (18:00)
[2016-08-09] MEDS ORDERED: PROMETHAZINE HCL 25 MG/ML 1ML IV PRN (18:00)
[2016-08-09] MEDS ORDERED: diphenhdrAMINE HCL 25 MG CAP PO PRN (18:00)
[2016-08-09] MEDS ORDERED: METHADONE HCL 10 MG TAB PO PRN (18:00)
[2016-08-09] MEDS ORDERED: ACETAMINOPHEN 500 MG TAB PO PRN (18:00)
[2016-08-09] MEDS ORDERED: NITROGLYCERIN 0.4 MG SL TAB SL PRN (18:00)
[2016-08-09] MEDS ORDERED: HYDROmorphone HCL 2 MG/ML VL IV PRN (18:00)
[2016-08-09 18:05] LABS: INR 1.13 (0.9-1.15); Partial Thromboplastin Time 29.4 sec (22.64-33.71); Prothrombin Time 12.3 sec (9.37-12.3)
[2016-08-09] MEDS ORDERED: MORPHINE SULFATE 4 MG/ML SYRG IV ONE (18:30)
[2016-08-09] MEDS ORDERED: SPIRONOLACTONE 25 MG TAB PO SCH (20:00)
[2016-08-09 20:02] VITALS: BP 120/85
[2016-08-09] MEDS ORDERED: LEVETIRACETAM 500 MG TAB PO SCH (22:00)
[2016-08-09] MEDS ORDERED: OLANZapine 5 MG TAB PO SCH (22:00)
[2016-08-09] MEDS ORDERED: FAMOTIDINE 20 MG TAB PO SCH (22:00)
[2016-08-09] MEDS ORDERED: METOPROLOL TARTRATE 25 MG TAB PO SCH (22:00)
[2016-08-09] MEDS ORDERED: ATORVASTATIN 20 MG TAB PO SCH (22:00)
[2016-08-09] MEDS ORDERED: PHENYTOIN SODIUM 100 MG CAP PO SCH (22:00)
[2016-08-10] MEDS ORDERED: ELVITEGRAVIR PO SCH (10:00)
[2016-08-10] MEDS ORDERED: TENOFOVIR DISOPROXIL FUMARATE PO SCH (10:00)
[2016-08-10] MEDS ORDERED: EMTRICITABINE PO SCH (10:00)
[2016-08-10] MEDS ORDERED: THIAMINE HCL 100 MG TAB PO SCH (10:00)
[2016-08-10] MEDS ORDERED: MAGNESIUM OXIDE 400 MG TAB PO SCH (10:00)
[2016-08-10] MEDS ORDERED: FOLIC ACID 1 MG TAB PO SCH (10:00)
[2016-08-10] MEDS ORDERED: NITROGLYCERIN 0.2MG/HR TOPICAL PATCH TD SCH (10:00)
[2016-08-10] MEDS ORDERED: COBICISTAT PO SCH (10:00)
== END 2016-08-09 20:30 | disposition home or self-care (01) | DRG 535 ==
LOC: ER 15:34 → EDBD 15:34 → OVERFLOW 17:40 → ER 20:30
PROVIDERS: ADMIT Emergency Medicine; ATTEND Emergency Medicine
DX: S72.001A Fracture of unspecified part of neck of right femur, initial encounter for closed fracture (principal); I13.0 Hypertensive heart and chronic kidney disease with heart failure and stage 1 through stage 4 chronic kidney disease, or unspecified chronic kidney disease; B20 Human immunodeficiency virus [HIV] disease; R64 Cachexia; F31.9 Bipolar disorder, unspecified; R74.8 Abnormal levels of other serum enzymes; F20.3 Undifferentiated schizophrenia; N40.0 Benign prostatic hyperplasia without lower urinary tract symptoms; K21.9 Gastro-esophageal reflux disease without esophagitis; I50.9 Heart failure, unspecified; G40.909 Epilepsy, unspecified, not intractable, without status epilepticus; I25.10 Atherosclerotic heart disease of native coronary artery without angina pectoris; I25.2 Old myocardial infarction; E78.5 Hyperlipidemia, unspecified; I34.1 Nonrheumatic mitral (valve) prolapse; E87.6 Hypokalemia; N18.9 Chronic kidney disease, unspecified; Z86.73 Personal history of transient ischemic attack (TIA), and cerebral infarction without residual deficits; Z95.2 Presence of prosthetic heart valve; W19.XXXA Unspecified fall, initial encounter; Y92.009 Unspecified place in unspecified non-institutional (private) residence as the place of occurrence of the external cause; Y93.89 Activity, other specified; Y99.8 Other external cause status
CPT/HCPCS: 36415; 71010; 73502; 80053; 80164; 80185; 83735; 84484; 85025; 85610; 85730; 86850; 86900; 86901; 93005; 96361; 96374; 96375; 99285; G0378; J2270; J2300; J2550

== ENCOUNTER 2016-10-01 16:32 | Emergency (ER) | payer MEDICARE ==
[~2016-10-01] VITALS: Ht 177.8 cm; Wt 72.6 kg
[2016-10-01 17:33] LABS: Basophils # (auto) 0 uL; Basophils % (auto) 0.3 % (0.0-2.0); CONDITION Y; Eosinophils # (auto) 0.2 uL; Hematocrit 41.2 % (41.0-53.0); Hemoglobin 13.9 g/dL (13.5-17.5); Lymphocytes # (auto) 1.2 uL; Lymphocytes % (auto) 15.5 % (10.0-50.0); Mean Corpuscular Hemoglobin 31.3 pg (28.0-32.0); Mean Corpuscular Hgb Conc. 33.7 g/dL (32.0-36.0); Mean Corpuscular Volume 93.1 fL (80.0-100.0); Mean Platelet Volume 7.9 fL (7.4-10.4); Monocytes # (auto) 0.7 uL; Monocytes % (auto) 8.7 % (0.0-12.0); Neutrophils # (auto) 5.8 uL; Neutrophils % (auto) 73.5 % (37.0-80.0); Platelet Count (auto) 279 10^3/uL (140-450); White Blood Cell 7.9 10^3/uL (4.4-10.8)
[2016-10-01] MEDS ORDERED: LEVETIRACETAM INJ 1,000 MG in SODIUM CHL 0.9% 100 ML IV ONE (18:00)
[2016-10-01 18:05] LABS: Albumin 3.1 g/dL (3.4-5.0); BUN/Creatinine Ratio 11.8; Bilirubin, Total 0.4 mg/dL (0.2-1.0); Calcium 8.5 mg/dL (8.5-10.1); Potassium 3.8 mmol/L (3.5-5.1); Total Protein 7.5 g/dL (6.4-8.2)
[2016-10-01] MEDS: LORazepam 2MG/ML-1ML VIAL IV ONE ×2 (18:26→19:50)
[2016-10-01] MEDS ORDERED: SODIUM CHLORIDE 0.9% 1,000 ML IV ONE ×2 (19:09)
[2016-10-01] MEDS ORDERED: LEVETIRACETAM 500 MG/5ML INJ IV ONE (19:38)
[2016-10-01 23:00] VITALS: BP 116/68
== END 2016-10-01 23:41 | disposition home or self-care (01) ==
LOC: ER 16:32 → EDBD 16:32 → ER 23:41
DX: G40.909 Epilepsy, unspecified, not intractable, without status epilepticus (principal); Z86.73 Personal history of transient ischemic attack (TIA), and cerebral infarction without residual deficits; K21.9 Gastro-esophageal reflux disease without esophagitis; I25.10 Atherosclerotic heart disease of native coronary artery without angina pectoris; F20.9 Schizophrenia, unspecified; I10 Essential (primary) hypertension; E78.5 Hyperlipidemia, unspecified; F17.210 Nicotine dependence, cigarettes, uncomplicated
CPT/HCPCS: 36415; 70450; 71010; 80053; 82542; 85025; 93005; 96361; 96365; 96375; 99285; J1953; J2060; J7030; J7040

== ENCOUNTER 2016-11-05 20:05 | Emergency (ER) | payer MEDICARE ==
[~2016-11-05] VITALS: Ht 177.8 cm; Wt 54.4 kg
[~2016-11-05 20:05] MED LIST changes: -DIPH25CA46 PO; -DIV250ER PO; -DIVA500T59 PO; -ELVI1TAB4 PO; -FAM20T PO; -FOLI1TAB6 PO; -FURO40TA4 PO; -MAGN400T23 PO; -MELA5TAB8 PO; -METH10TA97 PO; -ONDA4TAB5 PO; -PHE100C PO; -POTA80TA OR; -SPIR100T21 PO; -TAMS0.4C36 PO; -THIA50CA PO
[2016-11-05 21:59] LABS: Alkaline Phosphatase 294 U/L (45-117); Anion Gap 11 (5-15); Aspartate Aminotransferase 21 U/L (15-37); BUN/Creatinine Ratio 11.4; Bilirubin, Total 0.2 mg/dL (0.2-1.0); Blood Urea Nitrogen 5 mg/dL (7-18); Calcium 8.3 mg/dL (8.5-10.1); Carbon Dioxide 24 mmol/L (21-32); Chloride 97 mmol/L (98-107); GFR African American 263 mL/min; GFR Non-African American 218 mL/min; Glucose 71 mg/dL (74-106); Magnesium 2.5 mg/dL (1.6-2.6); Potassium 3.7 mmol/L (3.5-5.1); Sodium 132 mmol/L (136-145); Total Protein 7.2 g/dL (6.4-8.2)
[2016-11-05 22:02] LABS: B-Type Natriuretic Peptide 18.2 pg/mL (0-100); Temperature: 22.2 C (20.0-25.0)
[2016-11-05 22:24] LABS: Basophils # (auto) 0.1 uL; Basophils % (auto) 1.2 % (0.0-2.0); Eosinophils # (auto) 0.2 uL; Eosinophils % (auto) 4.8 % (0.0-7.0); Hematocrit 42.3 % (41.0-53.0); Lymphocytes # (auto) 1.7 uL; Lymphocytes % (auto) 36.7 % (10.0-50.0); Mean Corpuscular Hemoglobin 30.7 pg (28.0-32.0); Mean Corpuscular Hgb Conc. 33.2 g/dL (32.0-36.0); Mean Corpuscular Volume 92.4 fL (80.0-100.0); Mean Platelet Volume 8.3 fL (7.4-10.4); Monocytes # (auto) 0.5 uL; Monocytes % (auto) 10.8 % (0.0-12.0); Neutrophils # (auto) 2.2 uL; Neutrophils % (auto) 46.5 % (37.0-80.0); Nucleated Red Blood Cells % 0.3 %; Platelet Count (auto) 107 10^3/uL (140-450); Red Cell Distribution Width 15.8 % (11.6-16.0); White Blood Cell 4.6 10^3/uL (4.4-10.8)
[2016-11-05 23:24] LABS: Anisocytosis Moderate; Platelet Estimate Decreased
[2016-11-06 02:37] VITALS: BP 95/70
== END 2016-11-06 03:03 | disposition home or self-care (01) ==
LOC: EDBD 20:05 → ER 20:11
DX: E16.2 Hypoglycemia, unspecified (principal); E46 Unspecified protein-calorie malnutrition; J44.9 Chronic obstructive pulmonary disease, unspecified; Z86.73 Personal history of transient ischemic attack (TIA), and cerebral infarction without residual deficits; E07.89 Other specified disorders of thyroid; K21.9 Gastro-esophageal reflux disease without esophagitis; Z90.89 Acquired absence of other organs; Z90.49 Acquired absence of other specified parts of digestive tract; Z88.6 Allergy status to analgesic agent; Z88.0 Allergy status to penicillin; Z79.899 Other long term (current) drug therapy
CPT/HCPCS: 36415; 70450; 71010; 80053; 82962; 83735; 83880; 84484; 85025; 93005